=== PATIENT | female | born 1960 | race Two or more races ===

== ENCOUNTER 2024-08-09 10:34 | Inpatient (IN) | payer MEDICAID, OTHER ==
[~2024-08-09] VITALS: Ht 162.6 cm; Wt 71.0 kg
[2024-08-09 11:15] VITALS: PULSE 72; RESP 17; O2SAT 96
--- NOTE | 2024-08-09 11:23 | DVH ---
CT HEAD WITHOUT CONTRAST INDICATION: DIZZINESS EXAM DATE: 08/09/2024 11:03 AM COMPARISON: None RADIATION DOSE: CTDIvol: 53.21 mGy, DLP: 942.26 mGy*cm PROCEDURE: CT scans of the head were obtained from the vertex to the skull base. Sagittal and coronal reconstructions were provided. All CT scans at this medical facility are performed using dose modulation techniques as appropriate t o a performed exam including the following: Automated exposure control was utilized; adjustment of th e MA and/or KV according to patient size; and use of iterative reconstruction technique. FINDINGS: Post surgical changes from left mastoidectomy with partial craniotomy is noted. There is s ulcal and ventricular prominence. The brainshows normal morphology and cope-white matter differentiat ion, without intracranial hemorrhage, extra-axial fluid collection, mass effect or acute large vessel infarct. The ventricles are normal in size. The basal cisterns are patent. The skull and visible fac ial bones are intact. The paranasal sinuses, mastoid air cells and middle ear cavities are well-aerat ed. The soft tissues of the scalp are unremarkable. IMPRESSION: Post surgical changes from left mastoidectomy with partial craniotomy is noted. No acute intracranial abnormality.
[2024-08-09 11:37] LABS: Urine Bacteria None Seen /hpf (None Seen)
--- NOTE | 2024-08-09 11:40 | ED.PDOC ---
History of Present Illness HPI Comments 63-year-old female who comes in with chief complaint of pressure in her head as well as nausea. The patient states that yesterday afternoon she started feeling some head pressure. Then at 10:30 a.m. in the evening the pain worsened. This morning at approximately 9:30 a.m. she started experiencing increased pressure which she rates as a 7/10. She developed some nausea so 911 was called. When the paramedics arrived, the patient was given Zofran 4 mg IV push. Upon arrival, the patient was still complaining of the head pressure but denies any nausea or vomiting. There has been no fever or chills. We used the patient was daughter for translation. Chief Complaint: Dizziness Time Seen by MD: 10:35 Primary Care Provider: DOUGLAS Reviewed Notes: Nurses Notes, Wreath Machine Tender Notes, Medications, Allergies (Allergies listed above) Allergies: Coded Allergies: Codeine (Verified Allergy, Unknown, 08/09/24) Ibuprofen (Verified Allergy, Unknown, 08/09/24) Information Source: Patient, Relative (Child), Emergency Med Personnel Mode of Arrival: EMS Severity: Moderate Timing: Days Duration: Since onset Prehospital treatment: Press Hand, IVF, Other (Zofran 4 mg IV push) Associated signs and symptoms Associated nausea with the headaches Past Medical History PAST MEDICAL HISTORY: High Lipids, HTN Past Medical History (Other): Left leg DVT Surgical History (Other): Right ear procedure, left ankle surgeries Family History Family History: Reviewed,noncontributory to illness Social History Smoker: Non-Smoker Alcohol: Denies ETOH Use Drugs: Denies Drug Use Lives In: Home Constitutional: denies: chills, diaphoresis, fatigue, fever, malaise, sweats, weakness, others EENTM: denies: blurred vision, double vision, ear bleeding, ear discharge, ear drainage, ear pain, ear ringing, eye pain, eye redness, hearing loss, mouth pain, mouth swelling, nasal discharge, nose bleeding, nose congestion, nose pain, photophobia, tearing, throat pain, throat swelling, voice changes, others Respiratory: denies: cough, hemoptysis, orthopnea, SOB at rest, shortness of breath, SOB with excertion, stridor, wheezing, others Cardiovascular: denies: chest pain, dizzy spells, diaphoresis, Dyspnea on exertion, edema, irregular heart beat, left arm pain, lightheadedness, palpitations, PND, syncope, others Gastrointestinal: reports: nausea; denies: abdomen distended, abdominal pain, blood streaked bowels, constipated, diarrhea, dysphagia, difficulty swallowing, hematemesis, melena, poor appetite, poor fluid intake, rectal bleeding, rectal pain, vomiting, others Genitourinary: denies: abnormal vagina bleeding, burning, dyspareunia, dysuria, flank pain, frequency, hematuria, incontinence, pain, , vagina discharge, urgency, others Neurological: reports: headache; denies: dizziness, fainting, left sided numbne ss, left sided weakness, numbness, paresthesia, pre-existing deficit, right sided numbness, right sided weakness, seizure, speech problems, tingling, tremors, weakness, others Musculoskeletal: denies: back pain, gout, joint pain, joint swelling, muscle pain, muscle stiffness, neck pain, others Integumetry: denies: bruises, change in color, change in hair/nails, dryness, laceration, lesions, lumps, rash, wounds, others Allergic/Immunocompromised: denies: Difficulty Healing, Frequent Infections, Hives, Itching, others Hematologic/Lymphatic: denies: anemia, blood clots, easy bleeding, easy bruising, swollen glands, others Endocrine: denies: excessive hunger, excessive sweating, excessive thirst, excessive urination, flushing, intolerance to cold, intolerance to heat, unexplained weight gain, unexplained weight loss, others Psychiatric: denies: anxiety, bipolar disorder, depression, hopeless, panic disorder, schizophrenia, sleepless, suicidal, others Physical Exam General Appearance: Moderate Distress HEENT: Normal ENT Inspection, Pharynx Normal, TMs Normal Neck: Full Range of Motion, Non-Tender, Normal, Normal Inspection Respiratory: Chest Non-Tender, Lungs Clear, No Accessory Muscle Use, No Respiratory Distress, Normal Breath Sounds Cardiovascular: No Edema, No JVD, No Murmur, No Gallop, Normal Peripheral Pulses, Regular Rate/Rhythm Breast Exam: Deferred Gastrointestinal: No Organomegaly, Non Tender, No Pulsatile Mass, Normal Bowel Sounds, Soft Genitalia: Deferred Pelvic: Deferred Rectal: Deferred Extremities: No calf tenderness, Normal capillary refill, Normal inspection, Normal range of motion, Non-tender, No pedal edema Musculoskeletal : Apperance: Normal Neurologic: Alert, chemistry physics teacher II-XII nml as Tested, Facial Droop (Right-sided facial droop from previous surgery), Motor Weakness, Normal Affect, Normal Mood, No Sensory Deficits Cerebellar Function: Normal Reflexes: Normal Skin: Dry, Normal Color, Warm Lymphatic: No Adenopathy Was a procedure done? Was a procedure done?: No EKG EKG : Pulse Rate (adult): 71 [place]: Normal Cardiac Rhythm: NSR Block: None ST: Nonsp Differential Dx Considerations may include: CVA, hypertensive urgency, generalized weakness X-Ray, Labs, Meds, VS Vital Signs Date Time Temp Pulse Resp B/P (MAP) Pulse Ox O2 Delivery O2 Flow Rate FiO2 08/09/24 15:39 74 13 142/77 08/09/24 15:25 74 13 142/77 (98) 93 08/09/24 15:09 73 13 142/77 08/09/24 15:00 74 12 140/74 (96) 95 08/09/24 14:00 82 14 141/79 (99) 94 08/09/24 13:00 72 12 135/72 (93) 94 08/09/24 12:28 68 13 141/78 08/09/24 12:20 68 13 141/78 (99) 97 08/09/24 11:58 72 17 155/76 08/09/24 11:40 71 08/09/24 11:15 98.1 72 17 155/76 (102) 96 98.1 08/09/24 11:15 72 17 96 Room Air* 0 21 08/09/24 10:37 98.5 83 20 178/80 (112) 97 Lab Test 08/09/24 15:15 08/09/24 11:33 08/09/24 11:15 Range/Units Troponin I High Sensitivity < 3 L </=34 ng/L White Blood Count 6.6 4.4-10.8 10^3/uL Red Blood Count 4.23 4.0-5.20 10^6/uL Hemoglobin 13.5 12.2-16.2 g/dL Hematocrit 39.7 36.0-46.0 % Mean Corpuscular Volume 93.8 80.0-100.0 fL Mean Corpuscular Hemoglobin 31.9 28.0-32.0 pg Mean Corpuscular Hemoglobin Concent 34.1 32.0-36.0 g/dL Red Cell Distribution Width 13.2 11.8-14.3 % Platelet Count 194 140-450 10^3/uL Mean Platelet Volume 7.9 6.9-10.8 fL Neutrophils (%) (Auto) 68.9 37.0-80.0 % Lymphocytes (%) (Auto) 24.1 10.0-50.0 % Monocytes (%) (Auto) 6.1 0.0-12.0 % Eosinophils (%) (Auto) 0.5 0.0-7.0 % Basophils (%) (Auto) 0.4 0.0-2.0 % Neutrophils # (Auto) 4.5 1.6-8.6 10 ^3/uL Lymphocytes # (Auto) 1.6 0.4-5.4 10 ^3/uL Monocytes # (Auto) 0.4 0-1.3 10 ^3/uL Eosinophils # (Auto) 0 0-0.8 10 ^3/uL Basophils # (Auto) 0 0-0.2 10 ^3/uL Nucleated Red Blood Cells 0.1 % Prothrombin Time 18.0 H 9.3-11.8 sec Prothrombin Time INR 1.80 H 0.9-1.15 Activated Partial Thromboplast Time 33.6 24.5-34.5 SEC Sodium Level 137 136-145 mmol/L Potassium Level 4.0 3.5-5.1 mmol/L Chloride Level 104 98-107 mmol/L Carbon Dioxide Level 26 20-31 mmol/L Anion Gap 7 5-15 Blood Urea Nitrogen 10 9-23 mg/dL Creatinine 0.75 0.550-1.02 mg/dL Glomerular Filtration Rate Calc 90 >90 mL/min BUN/Creatinine Ratio 13.3 10.0-20.0 Serum Glucose 110 H 74-106 mg/dL Calcium Level 9.8 8.7-10.4 mg/dL Urine Color Light-yellow Yellow Urine Clarity Clear Clear Urine pH 6.0 5.0-9.0 Urine Specific [place] 1.016 1.001-1.035 Urine Protein Negative Negative Urine Ketones Negative Negative Urine Blood Negative Negative /uL Urine Nitrite Negative Negative Urine Bilirubin Negative Negative Urine Urobilinogen Normal Negative mg/dL Urine Leukocyte Esterase Negative Negative /uL Urine RBC 1 0 - 4 /hpf Urine Microscopic WBC < 1 0-5 /HPF Urine Squamous Epithelial Cells Few <5 /hpf Urine Bacteria None seen None Seen /hpf Urine Mucus Few None Seen Urine Glucose Normal Normal mg/dL Current Medications Medications (Trade) Dose Ordered Sig/Haroldo Route Start Time Stop Time Status Last Admin Morphine Sulfate 2 mg ONCE ONCE IV 08/09/24 11:15 08/09/24 11:16 DC 08/09/24 11:58 Ondansetron HCl (Zofran) 4 mg ONCE ONCE IV 08/09/24 12:00 08/09/24 12:01 DC 08/09/24 11:57 Morphine Sulfate 4 mg ONCE ONCE IV 08/09/24 14:30 08/09/24 14:31 DC 08/09/24 15:09 Ondansetron HCl (Zofran) 4 mg ONCE ONCE IV 08/09/24 14:30 08/09/24 14:31 DC 08/09/24 15:08 CT scan of the head shows: IMPRESSION: Post surgical changes from left mastoidectomy with partial craniotomy is noted. No acute intracranial abnormality. CT scan of the abdomen and pelvis shows: IMPRESSION: Post surgical changes from left mastoidectomy with partial craniotomy is noted. No acute intracranial abnormality. The patient's CBC is within normal limits The chemistry panel is within normal limits The urine test is negative The troponin level is negative The patient was given morphine 4 mg IV push for the pain The patient was given Zofran 4 mg IV push for the nausea The patient did have some relief from her headache but is now complaining of abd ominal pain The patient was then given morphine and Zofran for the abdominal pain The patient was still having persistent symptoms The patient was being admitted at this time Images Reviewed?: Images reviewed and evaluated by me Time of 1ST Reevaluation: 11:40 Reevaluation 1ST: Unchanged Patient Education/Counseling: Diagnosis, Treatment, Prognosis Family Education/Counseling: Diagnosis, Treatment, Prognosis Departure 1 Departure Time of Disposition: 16:17 Impression: Primary Impression: Intractable abdominal pain Additional Impressions: Tension headache Generalized weakness Disposition: 09 ADMITTED INPATIENT Admit to: Med Surg Condition: Fair Critical Care Note Critical Care Time?: No Stability Stability form required: Yes Unstable for transfer: Telemetry monitoring (Telemetry monitoring required), ED Physician Assesment (Clinical assesment) Heart Score Heart Score: Heart Score Response (Comments) Value History N/A 0 EKG N/A 0 Age N/A 0 Risk Factors N/A 0 Troponin N/A 0 Total 0 ROSEANNE MITCHELL MD Aug 09, 2024 11:40
[2024-08-09 11:52] LABS: Basophils # (auto) 0 10 ^3/uL (0-0.2); Basophils % (auto) 0.4 % (0.0-2.0); Eosinophils # (auto) 0 10 ^3/uL (0-0.8); Eosinophils % (auto) 0.5 % (0.0-7.0); Hematocrit 39.7 % (36.0-46.0); Hemoglobin 13.5 g/dL (12.2-16.2); Lymphocytes # (auto) 1.6 10 ^3/uL (0.4-5.4); Lymphocytes % (auto) 24.1 % (10.0-50.0); Mean Corpuscular Hemoglobin 31.9 pg (28.0-32.0); Mean Corpuscular Hgb Conc. 34.1 g/dL (32.0-36.0); Mean Corpuscular Volume 93.8 fL (80.0-100.0); Monocytes # (auto) 0.4 10 ^3/uL (0-1.3); Monocytes % (auto) 6.1 % (0.0-12.0); Neutrophils # (auto) 4.5 10 ^3/uL (1.6-8.6); Neutrophils % (auto) 68.9 % (37.0-80.0); Nucleated Red Blood Cells % 0.1 %; Platelet Count (auto) 194 10^3/uL (140-450); Red Blood Cells 4.23 10^6/uL (4.0-5.20); Red Cell Distribution Width 13.2 % (11.8-14.3); White Blood Cell 6.6 10^3/uL (4.4-10.8)
[2024-08-09 11:56] LABS: Urine Blood Negative /uL (Negative); Urine Clarity Clear (Clear); Urine Color Light-Yellow (Yellow); Urine Mucus FEW (None Seen); Urine Protein, UAD Negative (Negative); Urine Specific Gravity 1.016 (1.001-1.035); Urine Squamous Epithelial Cell FEW /hpf (<5); Urine Urobilinogen Normal (Negative); Urine WBC < 1 /HPF (0-5)
[2024-08-09] MEDS: ONDANSETRON HCL 4 MG/2 ML VIAL IV ONE ×2 (11:57→15:08)
[2024-08-09] MEDS: MORPHINE SULFATE INJ 2 MG/ml SYRG IV ONE (11:58)
[2024-08-09 11:59] LABS: Chloride 104 mmol/L (98-107); Sodium 137 mmol/L (136-145)
[2024-08-09 12:01] LABS: Anion Gap 7 (5-15); Calcium 9.8 mg/dL (8.7-10.4); Carbon Dioxide 26 mmol/L (20-31)
[2024-08-09 12:06] LABS: BUN/Creatinine Ratio 13.3 (10.0-20.0); Blood Urea Nitrogen 10 mg/dL (9-23)
[2024-08-09 12:11] LABS: Glucose 110 mg/dL (74-106)
[2024-08-09 12:14] LABS: INR 1.8 (0.9-1.15); Partial Thromboplastin Time 33.6 SEC (24.5-34.5)
--- NOTE | 2024-08-09 14:43 | DVH ---
CT ABDOMEN AND PELVIS WITHOUT CONTRAST CLINICAL HISTORY: pain TECHNIQUE: Multiple contiguous axial images of the abdomen and pelvis without intravenous contrast. The images were reformatted degenerate coronal and sagittal reconstructions. All CT scans at this medical facility are performed using dose modulation techniques as appropriate t o a performed exam including the following:Automated exposure control was utilized; adjustment of the MA and/or KV according to patient size; and use of iterative reconstruction technique. Radiation Dose Information: CT Dose: CTDI volume is 7.02 mGy. Dose-length product is 358.37 mGy*cm Comparison: None FINDINGS: Evaluation of the abdomen and pelvis is limited without intravenous contrast. The liver, gallbladder, pancreas, kidneys, adrenal glands, and spleen appear within normal limits. There is no gross evidence of abdominal lymphadenopathy. There is no free fluid or free air. The stomach grossly appears unremarkable. The small and large bowel loops demonstrate normal caliber . A normal-appearing appendix is seen in the right lower quadrant abdomen. The abdominal aorta and IVC appear within normal limits. The bladder appears unremarkable for the degree of distention. Pelvic organ appears within normal [place] its. There is no gross evidence of a pelvic mass. There is no free fluid collection. Lung bases are clear. There is pericardial effusion. There is no acute osseous abnormality. IMPRESSION: 1. There is no acute process in the abdomen and pelvis. HS:Y
[2024-08-09] MEDS: MORPHINE SULFATE 4 MG/ML SYR/VIAL IV ONE (15:09)
--- NOTE | 2024-08-09 22:44 | DVHHPRES ---
History of Present Illness Resident Creating Document: MINH HUITRON RESIDENT Reason for Visit: Dizziness and headache History of Present Illness This is a 63-year-old female who comes into the ED with chief complain of headaches, nausea and dizziness. 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 History of left middle ear surgery around 15 years ago. Denies using any drugs, alcohol or smoking. History was obtained with the help of her daughter, patient states that since three days ago she has been experiencing episodes of dizziness, which exacerbate with change of positions, bending, standing up. She mentions that whenever she walks she feels that she will fall. She also mentions experiencing headaches, most prominent on left side, waxes and wane, with moderate to severe intensity, the associated with nausea, dizziness, worsens with bright light and improves in a dark room without noise, and taking Tylenol. In the ED, patient has had a head CT which was unremarkable, she will also receive morphine IV, Zofran IV, a CT abdomen pelvis was also unremarkable. She was admitted for further investigation and management. Cardiovascular: HTN, hyperipidemia Pulmonary: Pulmonary embolus Smoke: No ALCOHOL: none Drugs: None Lives: with Family Review of Systems Constitutional: Yes: Malaise; No: Fever, Chills, Sweats, Weakness, Other Eyes: No: Pain, Vision change, Conjunctivae inflammation, Eyelid inflammation, Other, Redness ENT: No: Ear pain, Ear discharge, Nose pain, Nose discharge, Nose congestion, Mouth pain, Mouth swelling, Throat pain, Throat swelling, Other Respiratory: No: Cough, Dry, Shortness of breath, SOB with excertion, Wheezing, Hemoptysis, Pleuritic Pain, Sputum, Wheezing, Other Cardiovascular: No: Chest Pain, Palpitations, Orthopnea, Paroxysmal Noc. Dyspnea, Edema, Lt Headedness, Other Gastrointestinal: Nausea, Abdominal Pain; No: Vomiting, Diarrhea, Constipation, Melena, Hematochezia, Other Genitourinary: Dysuria; No Frequency, No Incontinence, No Hematuria, No Retention, No Other Musculoskeletal: No: other, neck pain, shoulder pain, arm pain, back pain, hand pain, leg pain, foot pain Skin: No: Rash, Lesions, Jaundice, Bruising, Other Neurological: Other (Dizziness); No: Weakness, Numbness, Incoordination, Change in speech, Confusion, Seizures Allergies: Coded Allergies: Codeine (Verified Allergy, Unknown, 08/09/24) Ibuprofen (Verified Allergy, Unknown, 08/09/24) Exam Vital Signs Vital Signs Date Time Temp Pulse Resp B/P (MAP) Pulse Ox O2 Delivery O2 Flow Rate FiO2 08/09/24 19:00 97.9 76 13 114/72 (86) 97 97.9 08/09/24 11:15 Room Air* 0 21 General Appearance: Alert, Oriented X3, Cooperative, No acute distress HEENT: Atraumatic, PERRLA, Mucous membr. moist/pink Respiratory: Clear to auscultation, Normal air movement Cardiovascular: Regular rate, Normal S1, Normal S2 Abdominal: Normal bowel sounds, Soft, No tenderness, No hepatospenomegaly Extremities: No clubbing, No cyanosis, No edema, Normal pulses, No tenderness/swelling Skin: No rashes, No breakdown, No significant lesion Neuro: Normal gait, Normal speech, Strength at 5/5 X4 ext, Normal tone, Sensation intact, Cranial nerves 3-12 NL Psych/Mental Status: Mental status NL, Mood NL Labs/Xrays Labs Test 08/09/24 16:24 08/09/24 11:33 08/09/24 11:15 Range/Units Troponin I High Sensitivity < 3 L </=34 ng/L White Blood Count 6.6 4.4-10.8 10^3/uL Red Blood Count 4.23 4.0-5.20 10^6/uL Hemoglobin 13.5 12.2-16.2 g/dL Hematocrit 39.7 36.0-46.0 % Mean Corpuscular Volume 93.8 80.0-100.0 fL Mean Corpuscular Hemoglobin 31.9 28.0-32.0 pg Mean Corpuscular Hemoglobin Concent 34.1 32.0-36.0 g/dL Red Cell Distribution Width 13.2 11.8-14.3 % Platelet Count 194 140-450 10^3/uL Mean Platelet Volume 7.9 6.9-10.8 fL Neutrophils (%) (Auto) 68.9 37.0-80.0 % Lymphocytes (%) (Auto) 24.1 10.0-50.0 % Monocytes (%) (Auto) 6.1 0.0-12.0 % Eosinophils (%) (Auto) 0.5 0.0-7.0 % Basophils (%) (Auto) 0.4 0.0-2.0 % Neutrophils # (Auto) 4.5 1.6-8.6 10 ^3/uL Lymphocytes # (Auto) 1.6 0.4-5.4 10 ^3/uL Monocytes # (Auto) 0.4 0-1.3 10 ^3/uL Eosinophils # (Auto) 0 0-0.8 10 ^3/uL Basophils # (Auto) 0 0-0.2 10 ^3/uL Nucleated Red Blood Cells 0.1 % Prothrombin Time 18.0 H 9.3-11.8 sec Prothrombin Time INR 1.80 H 0.9-1.15 Activated Partial Thromboplast Time 33.6 24.5-34.5 SEC Sodium Level 137 136-145 mmol/L Potassium Level 4.0 3.5-5.1 mmol/L Chloride Level 104 98-107 mmol/L Carbon Dioxide Level 26 20-31 mmol/L Anion Gap 7 5-15 Blood Urea Nitrogen 10 9-23 mg/dL Creatinine 0.75 0.550-1.02 mg/dL Glomerular Filtration Rate Calc 90 >90 mL/min BUN/Creatinine Ratio 13.3 10.0-20.0 Serum Glucose 110 H 74-106 mg/dL Calcium Level 9.8 8.7-10.4 mg/dL Urine Color Light-yellow Yellow Urine Clarity Clear Clear Urine pH 6.0 5.0-9.0 Urine Specific [place] 1.016 1.001-1.035 Urine Protein Negative Negative Urine Ketones Negative Negative Urine Blood Negative Negative /uL Urine Nitrite Negative Negative Urine Bilirubin Negative Negative Urine Urobilinogen Normal Negative mg/dL Urine Leukocyte Esterase Negative Negative /uL Urine RBC 1 0 - 4 /hpf Urine Microscopic WBC < 1 0-5 /HPF Urine Squamous Epithelial Cells Few <5 /hpf Urine Bacteria None seen None Seen /hpf Urine Mucus Few None Seen Urine Glucose Normal Normal mg/dL Assessment/Plan Assessment/Plan #Headache, possibly due to migraine, tension headaches #Dizziness, possibly related to peripheral vertigo, possibly due to vestibular neuritis, labyrinthitis, rule out TIA/stroke Head CT was unremarkable. HINTS examination pointing towards peripheral vertigo Meclizine 25 mg p.o. q.6 hours p.r.n. Zofran 4 mg IV p.r.n. Tylenol prn Ordered orthostatic vitals Ordered B12, folate, A1c, hepatic panel, TSH, urine culture Ordered carotid ultrasound #Hypertension, uncontrolled Improved, monitor Cardiac diet #Pericardial effusion Ordered Echocardiogram Ordered EKG, shows NSR, no acute ST-T waves Troponins within normal limits #Abdominal pain, possibly related to acute gastritis, peptic ulcer disease Continue Protonix 40 mg IV q.d. Denies any hematemesis, brown coffee emesis, melena Pending hepatic panel CT abdomen was unremarkable #History of DVT and PE in 2021 Continue warfarin per pharmacy #Hyperlipidemia Continue Lipitor 20 mg p.o. daily Goals of care were discussed for over 30 minutes. Full code Case was discussed with Dr. Andre. Plan discussed with: Patient, Daughter My Orders Orders - MINH HUITRON RESIDENT Procedure Category Date Status Time Admit ADMIT 08/09/24 Transmitted 21:46 Notify Md Of Changes NEIL 08/09/24 In Process From Base 21:46 Orthostatic Vital ORDERS 08/09/24 Verified Signs 22:31 Vitamin B12 LAB 08/09/24 Verified 22:31 Folate (Folic Acid) LAB 08/09/24 Verified 22:31 Hepatic Panel LAB 08/09/24 Verified 22:31 Ondansetron Hcl PHA 08/09/24 Verified (Zofran) 22:45 Meclizine Tablet PHA 08/09/24 Verified (Antivert Tablet) 22:45 Complete Blood Count LAB 08/10/24 Verified 04:00 Basic Metabolic Panel LAB 08/10/24 Verified 04:00 Hemoglobin A1c LAB 08/09/24 Verified 22:31 Lipid Panel LAB 08/09/24 Verified 22:31 Thyroid Stimulating LAB 08/09/24 Verified Hormone 22:31 Pantoprazole PHA 08/09/24 Verified (Protonix) 22:45 Pantoprazole PHA 08/10/24 Verified (Protonix) 10:00 Cardiac DIET 08/10/24 Verified Diet-2gna,Lofat,Lochol Breakfast Urine Bacterial MATT 08/09/24 Verified Culture 22:31 Hydrocodone-Acet PHA 08/09/24 Verified 5/325mg Tab ([place] 22:45 Cortisol Am LAB 08/10/24 Verified 08:00 Ketorolac Injection PHA 08/09/24 Verified (Toradol Injection) 22:45 Warfarin Per Rx PHA 08/09/24 Verified Protocol (Coumadin 22:45 Atorvastatin (Lipitor) PHA 08/10/24 Verified 22:00 Chest Xray 1 View XY 08/09/24 Verified 22:31 MINH HUITRON RESIDENT Aug 09, 2024 22:44
[2024-08-09] MEDS ORDERED: KETOROLAC TROMETH 30 MG/ML 1ML VIAL IV PRN (22:45)
[2024-08-09] MEDS ORDERED: ONDANSETRON HCL 4 MG/2 ML VIAL IV PRN (22:45)
[2024-08-09] MEDS ORDERED: HYDROcodone-ACET 5/325MG TAB PO PRN (22:45)
[2024-08-09] MEDS ORDERED: MECLIZINE HCL 25 MG TAB PO PRN (22:45)
[2024-08-09] MEDS: PANTOPRAZOLE 40 MG/10 ML VIAL INJ IV ONE (23:16)
--- NOTE | 2024-08-09 23:19 | ECG ---
[facility] Test Date: 2024-08-09 Test Time: 10:51:16 Pat Name: RAVEN MATTA Department: ER Room: [address] [place] [address] A Gender: F Small Order Cutter: SARAHI : 1960 Requested By: MINH FRAZIER Order Number: [id number] Reading MD: Giovani Lebron Measurements Intervals [place] Rate: 71 P: 67 VA: 378 QRS: 69 QRSD: 126 T: 56 QT: 387 QTc: 421 Interpretive Statements Sinus rhythm Nonspecific intraventricular conduction delay Electronically Signed On 08-10-2024 9:06:45 PST by Giovani Lebron Please click the below link to view image of tracing.
[2024-08-09 23:24] LABS: Albumin 4.6 g/dL (3.2-4.8); Bilirubin, Direct 0.2 mg/dL (<0.3); Bilirubin, Total 0.5 mg/dL (0.2-1.0); Total Protein 7.3 g/dL (5.7-8.2)
[2024-08-09 23:28] LABS: Folate (Folic Acid) 21.53 ng/mL (>5.38)
--- NOTE | 2024-08-10 00:45 | DVH ---
EXAMINATION: AP portable chest radiograph CLINICAL HISTORY: sob COMPARISON: None FINDINGS: Lead wires overlie the thorax. Mild central interstitial prominence. No lobar consolidation identified. No definite pleural effusion or pneumothorax. Mild apparent prominence of the cardiac silhouette may be in part exaggerated by teresa osbornque. Chronic appearing deformity of the right humeral head. IMPRESSION: Mild central interstitial prominence is relatively nonspecific but can be seen with edema, reactive a irway changes as well as atypical / viral infection. Please correlate clinically.
[2024-08-10 03:59] LABS: COVID19 ANTIGEN SOFIA FIA NEGATIVE (NEGATIVE); Rapid Influenza A Negative (Negative); Rapid Influenza B Negative (Negative)
[2024-08-10] MEDS ORDERED: SUMAtriptan SUCCINATE 25 MG TAB PO PRN (06:15)
[2024-08-10 07:25] VITALS: PULSE 78; RESP 14; O2SAT 98
[2024-08-10 08:02] LABS: Basophils # (auto) 0 10 ^3/uL (0-0.2); Basophils % (auto) 0.3 % (0.0-2.0); Eosinophils # (auto) 0 10 ^3/uL (0-0.8); Eosinophils % (auto) 0.6 % (0.0-7.0); Hematocrit 37.8 % (36.0-46.0); Hemoglobin 12.7 g/dL (12.2-16.2); Lymphocytes # (auto) 1.9 10 ^3/uL (0.4-5.4); Mean Corpuscular Hemoglobin 31.7 pg (28.0-32.0); Mean Corpuscular Hgb Conc. 33.7 g/dL (32.0-36.0); Monocytes # (auto) 0.4 10 ^3/uL (0-1.3); Monocytes % (auto) 7.6 % (0.0-12.0); Neutrophils # (auto) 3.1 10 ^3/uL (1.6-8.6); Neutrophils % (auto) 56.5 % (37.0-80.0); Nucleated Red Blood Cells % 0.1 %; Platelet Count (auto) 200 10^3/uL (140-450); Red Blood Cells 4.02 10^6/uL (4.0-5.20); Red Cell Distribution Width 13.8 % (11.8-14.3); White Blood Cell 5.6 10^3/uL (4.4-10.8)
[2024-08-10 08:19] LABS: Anion Gap 8 (5-15); Carbon Dioxide 27 mmol/L (20-31); Chloride 104 mmol/L (98-107); Potassium 3.9 mmol/L (3.5-5.1); Sodium 139 mmol/L (136-145)
[2024-08-10 08:21] LABS: Calcium 9.8 mg/dL (8.7-10.4)
[2024-08-10 08:25] LABS: BUN/Creatinine Ratio 17.6 (10.0-20.0); Blood Urea Nitrogen 13 mg/dL (9-23); Glucose 101 mg/dL (74-106)
[2024-08-10] MEDS: MECLIZINE HCL 25 MG TAB PO ONE (09:24)
--- NOTE | 2024-08-10 10:03 | DVH ---
CAROTID ARTERIAL DOPPLER CLINICAL HISTORY: dizziness TECHNIQUE: Doppler study of bilateral carotid/vertebral arteries were performed. Comparison: None FINDINGS: The bilateral common carotid, external and internal carotid arteries appear patent without hemodynami efrain significant stenosis. There is no significant flow limiting plaque formation identified.The sp ectral wave forms and peak systolic velocities are within normal limits. Antegrade flow is present within the vertebral arteries with appropriate velocities and waveforms. Right ICA/CCA PSV ratio = 0.9. Left ICA/CCA PSV ratio = 1.1 . IMPRESSION: 1. No hemodynamically significant stenosis within the carotid arteries. HS:Y
[2024-08-10] MEDS: PANTOPRAZOLE 40 MG/10 ML VIAL INJ IV SCH (10:35)
[2024-08-10] MEDS: ACETAMINOPHEN 325 MG TAB PO PRN (10:41)
[2024-08-10] MEDS ORDERED: ZOFR4T PO (12:27)
[2024-08-10] MEDS ORDERED: MECL12.586 PO (12:27)
[2024-08-10] MEDS ORDERED: PANT40TA2 PO (12:29)
[2024-08-10 13:40] VITALS: BP 122/65; PULSE 73; RESP 15; TEMP 97.3; O2SAT 96
--- NOTE | 2024-08-10 15:00 | DVHDSRES ---
Discharge Summary Date of Admission Resident Creating Document: DEBORAH MARISCAL RESIDENT Aug 09, 2024 at 21:46 Date of Discharge: Aug 10, 2024 Admitting Diagnosis Headache and dizziness Wounds: No wound was present Labs/Diagnostic Data: Laboratory Results Test 08/10/24 07:27 08/10/24 02:58 08/09/24 22:48 08/09/24 16:24 White Blood Count 5.6 10^3/uL (4.4-10.8) Red Blood Count 4.02 10^6/uL (4.0-5.20) Hemoglobin 12.7 g/dL (12.2-16.2) Hematocrit 37.8 % (36.0-46.0) Mean Corpuscular Volume 94.0 fL (80.0-100.0) Mean Corpuscular Hemoglobin 31.7 pg (28.0-32.0) Mean Corpuscular Hemoglobin Concent 33.7 g/dL (32.0-36.0) Red Cell Distribution Width 13.8 % (11.8-14.3) Platelet Count 200 10^3/uL (140-450) Mean Platelet Volume 8.0 fL (6.9-10.8) Neutrophils (%) (Auto) 56.5 % (37.0-80.0) Lymphocytes (%) (Auto) 35.0 % (10.0-50.0) Monocytes (%) (Auto) 7.6 % (0.0-12.0) Eosinophils (%) (Auto) 0.6 % (0.0-7.0) Basophils (%) (Auto) 0.3 % (0.0-2.0) Neutrophils # (Auto) 3.1 10 ^3/uL (1.6-8.6) Lymphocytes # (Auto) 1.9 10 ^3/uL (0.4-5.4) Monocytes # (Auto) 0.4 10 ^3/uL (0-1.3) Eosinophils # (Auto) 0 10 ^3/uL (0-0.8) Basophils # (Auto) 0 10 ^3/uL (0-0.2) Nucleated Red Blood Cells 0.1 % Sodium Level 139 mmol/L (136-145) Potassium Level 3.9 mmol/L (3.5-5.1) Chloride Level 104 mmol/L (98-107) Carbon Dioxide Level 27 mmol/L (20-31) Anion Gap 8 (5-15) Blood Urea Nitrogen 13 mg/dL (9-23) Creatinine 0.74 mg/dL (0.550-1.02) Glomerular Filtration Rate Calc 91 mL/min (>90) BUN/Creatinine Ratio 17.6 (10.0-20.0) Serum Glucose 101 mg/dL (74-106) Calcium Level 9.8 mg/dL (8.7-10.4) B-Type Natriuretic Peptide 30.14 pg/mL (0-100) Cortisol AM Sample 13.81 ug/dL (5.27-22.45) Influenza Type A Antigen Negative (Negative) Influenza Type B Antigen Negative (Negative) SARS-CoV-2 Antigen (Rapid) Negative (NEGATIVE) Hemoglobin A1c 5.8 % A1C (<5.7) Total Bilirubin 0.5 mg/dL (0.2-1.0) Direct Bilirubin 0.2 mg/dL (<0.3) Aspartate Amino Transferase (AST) 14 U/L (13-40) Alanine Aminotransferase (ALT) 16 U/L (7-40) Alkaline Phosphatase 93 U/L (46-116) Total Protein 7.3 g/dL (5.7-8.2) Albumin 4.6 g/dL (3.2-4.8) Triglycerides Level 70 mg/dL (< 150) Cholesterol Level 160 mg/dL (< 200) LDL Cholesterol 83 mg/dL (< 100) HDL Cholesterol 64 mg/dL (40-59) Vitamin B12 Level 394 pg/mL (211-911) Folic Acid 21.53 ng/mL (>5.38) Thyroid Stimulating Hormone (TSH) 1.08 uIU/mL (0.55-4.78) Troponin I High Sensitivity < 3 ng/L (</=34) Test 08/09/24 11:33 08/09/24 11:15 Prothrombin Time 18.0 sec (9.3-11.8) Prothrombin Time INR 1.80 (0.9-1.15) Activated Partial Thromboplast Time 33.6 SEC (24.5-34.5) Urine Color Light-yellow (Yellow) Urine Clarity Clear (Clear) Urine pH 6.0 (5.0-9.0) Urine Specific [place] 1.016 (1.001-1.035) Urine Protein Negative (Negative) Urine Ketones Negative (Negative) Urine Blood Negative /uL (Negative) Urine Nitrite Negative (Negative) Urine Bilirubin Negative (Negative) Urine Urobilinogen Normal mg/dL (Negative) Urine Leukocyte Esterase Negative /uL (Negative) Urine RBC 1 /hpf (0 - 4) Urine Microscopic WBC < 1 /HPF (0-5) Urine Squamous Epithelial Cells Few /hpf (<5) Urine Bacteria None seen /hpf (None Seen) Urine Mucus Few (None Seen) Urine Glucose Normal mg/dL (Normal) Other Laboratory Tests 08/10/24 07:27 Brief Hx & Hospital Course: This is a 63-year-old female who comes into the ED with chief complain of headaches, nausea and dizziness. 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 History of left middle ear surgery around 15 years ago. Denies using any drugs, alcohol or smoking. History was obtained with the help of her daughter, patient states that since three days ago she has been experiencing episodes of dizziness, which exacerbate with change of positions, bending, standing up. She mentions that whenever she walks she feels that she will fall. She also mentions experiencing headaches, most prominent on left side, waxes and wane, with moderate to severe intensity, the associated with nausea, dizziness, worsens with bright light and improves in a dark room without noise, and taking Tylenol. Hospital course: CT head without contrast revealed postsurgical changes from left mastectomy with partial craniotomy and no acute intracranial abnormality, chest xray demonstrated Mild central interstitial prominence is relatively nonspecific but can be seen with edema, reactive airway changes as well as atypical / viral infection. Carotid Doppler demonstrated no hemodynamically significant stenosis in right and left carotid arteries. orthostatic vital was negative, Jenelle-Hallpike maneuver was also negative. Discharge plan was discussed with the patient and all questions were answered. Patient is being discharged to home. Discharge diagnosis: #Headache, possibly due to migraine, tension headaches #Dizziness, possibly related to peripheral vertigo, possibly due to vestibular neuritis, labyrinthitis, ruled out TIA/stroke #Pericardial effusion, ruled out # Possible PUD #History of DVT and PE in 2021 #Hyperlipidemia Discharge Plan: Disposition : Home Medications : Meclizine 12.5 mg p.o. b.i.d. p.r.n. for 5 days, Zofran 4 mg t.i.d. p.r.n. for 5 days and pantoprazole 40 mg daily for 30 days Follow up : PCP in 1 week Consults/Reason for consult No consultation was done Operations or Procedures CT HEAD WITHOUT CONTRAST INDICATION: DIZZINESS EXAM DATE: 08/09/2024 11:03 AM COMPARISON: None RADIATION DOSE: CTDIvol: 53.21 mGy, DLP: 942.26 mGy*cm PROCEDURE: CT scans of the head were obtained from the vertex to the skull base. Sagittal and coronal reconstructions were provided. All CT scans at this medical facility are performed using dose modulation techniques as appropriate to a performed exam including the following: Automated exposure control was utilized; adjustment of the MA and/or KV according to patient size; and use of iterative reconstruction technique. FINDINGS: Post surgical changes from left mastoidectomy with partial craniotomy is noted. There is sulcal and ventricular prominence. The brainshows normal morphology and cope-white matter differentiation, without intracranial hemorrhage, extra-axial fluid collection, mass effect or acute large vessel infarct. The ventricles are normal in size. The basal cisterns are patent. The skull and visible facial bones are intact. The paranasal sinuses, mastoid air cells and middle ear cavities are well-aerated. The soft tissues of the scalp are unremarkable. IMPRESSION: Post surgical changes from left mastoidectomy with partial craniotomy is noted. No acute intracranial abnormality. EXAMINATION: AP portable chest radiograph CLINICAL HISTORY: sob COMPARISON: None FINDINGS: Lead wires overlie the thorax. Mild central interstitial prominence. No lobar consolidation identified. No definite pleural effusion or pneumothorax. Mild apparent prominence of the cardiac silhouette may be in part exaggerated by technique. Chronic appearing deformity of the right humeral head. IMPRESSION: Mild central interstitial prominence is relatively nonspecific but can be seen with edema, reactive airway changes as well as atypical / viral infection. Please correlate clinically CAROTID ARTERIAL DOPPLER CLINICAL HISTORY: dizziness TECHNIQUE: Doppler study of bilateral carotid/vertebral arteries were performed. Comparison: None FINDINGS: The bilateral common carotid, external and internal carotid arteries appear patent without hemodynamically significant stenosis. There is no significant flow limiting plaque formation identified.The spectral wave forms and peak systolic velocities are within normal limits. Antegrade flow is present within the vertebral arteries with appropriate velocities and waveforms. Right ICA/CCA PSV ratio = 0.9. Left ICA/CCA PSV ratio = 1.1 . IMPRESSION: 1. No hemodynamically significant stenosis within the carotid arteries. Condition at Discharge: Stable Final Diagnosis/Problems List #Headache, possibly due to migraine, tension headaches #Dizziness, possibly due to vestibular neuritis, labyrinthitis, ruled out TIA/stroke #Pericardial effusion, ruled out # Possible PUD #History of DVT and PE in 2021 #Hyperlipidemia Discharge Disposition: Home Discharge Instruct/Medications Diet: Cardiac 2g Na,low cholest Activity: No Restrictions, As Tolerated Follow Up/Referral: Follow up with PCP in 1 week Medications: As per EMR Discharge Statement: "Patient was advised to return to the ER or call 911 if any headaches, dizziness, shortness of breath, chest pain, abdominal pain, bleeding, fevers, or worsening of medical condition. Patient was counseled about treatment plan, medications, possible side effects, patientverbalized understanding. All questions were answered to the best of my ability. This discharge took greater then 30 minutes in planning, reviewing documentation, counseling the patient, and discussing with other team members." ASSESSMENT ASSESSMENT Assessment #Headache, possibly due to migraine, tension headaches #Dizziness, possibly due to vestibular neuritis, labyrinthitis, ruled out TIA/stroke #Pericardial effusion, ruled out # Possible PUD #History of DVT and PE in 2021 #Hyperlipidemia DEBORAH MARISCAL RESIDENT Aug 10, 2024 15:00
[2024-08-10] MEDS ORDERED: WARFARIN SODIUM 5 MG TAB PO ONE (17:00)
[2024-08-10] MEDS ORDERED: ATORVASTATIN 20 MG TAB PO SCH (22:00)
== END 2024-08-10 13:43 | disposition home or self-care (01) | DRG 54 ==
LOC: ER 10:34 → EDBD 10:34 → OVERFLOW 21:46
PROVIDERS: ATTEND Emergency Medicine
DX: G43.909 Migraine, unspecified, not intractable, without status migrainosus (principal); E78.5 Hyperlipidemia, unspecified; G44.209 Tension-type headache, unspecified, not intractable; G58.8 Other specified mononeuropathies; Z20.822 Contact with and (suspected) exposure to COVID-19; I10 Essential (primary) hypertension; Z86.718 Personal history of other venous thrombosis and embolism; Z86.711 Personal history of pulmonary embolism
CPT/HCPCS: 36415; 70450; 71045; 74176; 80048; 80061; 80076; 81001; 82533; 82607; 82746; 83036; 83880; 84443; 84484; 85025; 85610; 85730; 87086; 87088; 87186; 87426; 87804; 93005; 93886; 96374; 96375; 96376; G0378; J2405; J2470

== ENCOUNTER 2024-12-24 05:12 | Emergency (ER) | payer MEDICAID ==
[~2024-12-24] VITALS: Ht 172.7 cm; Wt 72.0 kg
[~2024-12-24 05:12] MED LIST: MECL12.586 PO; PANT40TA2 PO; ZOFR4T PO
[2024-12-24] MEDS: MORPHINE SULFATE 4 MG/ML SYR/VIAL IV ONE (05:30)
[2024-12-24] MEDS: SODIUM CHLORIDE 0.9% 1,000 ML IVB ONE (05:30)
[2024-12-24] MEDS: ONDANSETRON HCL 4 MG/2 ML VIAL IV ONE (05:30)
--- NOTE | 2024-12-24 05:35 | ED.PDOC ---
History of Present Illness HPI Comments 64 y/o F is BIBA with daughter for c/o nonradiating, periumbilical abdominal pain, nausea, vomiting, and dizziness. Per EMS report, patient's daughter reports on patient developing symptoms, suddenly, and hour ago prior to arrival. Patient has a history of DVT ane PE on Warfarin, HLD, HTN, and unspecified heart surgery for 'fluid removal.' Vitals was noted to have been stable and within normal limits, with a blood glucose of 130. Patient denies having any bloody or bilious vomitus, diarrhea, urinary symptoms, fever, vision or speech changes, headache, or further associated symptoms. Chief Complaint: Abdominal Pain Time Seen by MD: 05:20 Primary Care Provider: DOUGLAS Reviewed Notes: Nurses Notes, Automatic Dry Starch Operator Notes, Medications, Allergies Allergies: Coded Allergies: Codeine (Verified Allergy, Unknown, 08/09/24) Ibuprofen (Verified Allergy, Unknown, 08/09/24) Home Meds Active Scripts Pantoprazole Sodium Sesquihydr (Protonix) 40 Mg Tab, 40 MG PO DAILY for 30 Days, #30 TAB Prov:DEBORAH MARISCAL RESIDENT 08/10/24 Ondansetron Odt 4MG Tab (ZOFRAN PO) 4 Mg Tb, 4 MG PO TID for 5 Days, #15 TAB ODT TAB-DISSOLVE IN MOUTH, THEN SWALLOW Prov:DEBORAH MARISCAL RESIDENT 08/10/24 Meclizine Hcl (Meclizine Hcl) 12.5 Mg Tab, 1 TAB PO TID for 5 Days, #15 TAB 3 Refills Prov:DEBORAH MARISCAL RESIDENT 08/10/24 Information Source: Patient, Relative (Child), Emergency Med Personnel Mode of Arrival: EMS Severity: Moderate Timing: Hours Duration: Since onset Prehospital treatment: 12 Lead EKG, Accucheck, Director Financial Systems Past Medical History PAST MEDICAL HISTORY: High Lipids, HTN Past Medical History (Other): DVT and PE, on Warfarin Surgical History (Other): middle ear surgery Family History Family History: Reviewed,noncontributory to illness Social History Smoker: Non-Smoker Alcohol: Denies ETOH Use Drugs: Denies Drug Use Lives In: Home All Other Systems: Reviewed and Negative (As per HPI) Physical Exam General Appearance: Mild Distress, Normal HEENT: Normal ENT Inspection, Pharynx Normal, TMs Normal Neck: Full Range of Motion, Non-Tender, Normal, Normal Inspection Respiratory: Chest Non-Tender, Lungs Clear, No Accessory Muscle Use, No Respiratory Distress, Normal Breath Sounds Cardiovascular: No Edema, No JVD, No Murmur, No Gallop, Normal Peripheral Pulses, Regular Rate/Rhythm Breast Exam: Deferred Gastrointestinal: No Organomegaly, No Pulsatile Mass, Normal Bowel Sounds, Soft, Tenderness (periumbilical tenderness ) Genitalia: Deferred Pelvic: Deferred Rectal: Deferred Extremities: No calf tenderness, Normal capillary refill, Normal inspection, Normal range of motion, Non-tender, No pedal edema Musculoskeletal : Apperance: Normal Neurologic: Alert, pharmaceutical physician II-XII nml as Tested, No Motor Deficits, Normal Affect, Normal Mood, No Sensory Deficits Cerebellar Function: Normal Reflexes: Normal Skin: Dry, Normal Color, Warm Lymphatic: No Adenopathy Was a procedure done? Was a procedure done?: No Differential Dx Considerations may include: acute vertigo, gastritis, gastroenteritis, PUD, GERD, spoiled food, viral syndrome, electrolyte imbalance, dehydration, colitis, sbo, ischemic bowel, ileus appendicitis, AAA X-Ray, Labs, Meds, VS Vital Signs Date Time Temp Pulse Resp B/P (MAP) Pulse Ox O2 Delivery O2 Flow Rate FiO2 12/24/24 07:20 69 17 96 Room Air* 0 21 12/24/24 07:20 98.3 69 17 162/78 (106) 96 98.3 12/24/24 06:30 68 15 135/80 12/24/24 06:18 98.7 68 15 135/80 (98) 99 98.7 12/24/24 06:13 68 15 99 Room Air* 0 21 12/24/24 05:30 68 15 135/80 12/24/24 05:27 65 12/24/24 05:12 98.6 69 18 145/82 (103) 99 98.6 Lab Test 12/24/24 06:12 12/24/24 05:51 12/24/24 05:36 Range/Units Troponin I High Sensitivity < 3 L < 3 L </=34 ng/L Urine Color Colorless Yellow Urine Clarity Clear Clear Urine pH 7.5 5.0-9.0 Urine Specific [place] 1.005 1.001-1.035 Urine Protein Negative Negative Urine Ketones Negative Negative Urine Blood Negative Negative /uL Urine Nitrite Negative Negative Urine Bilirubin Negative Negative Urine Urobilinogen Normal Negative mg/dL Urine Leukocyte Esterase Negative Negative /uL Urine RBC 1 0 - 4 /hpf Urine Microscopic WBC 1 0-5 /HPF Urine Squamous Epithelial Cells Few <5 /hpf Urine Bacteria None seen None Seen /hpf Urine Glucose Normal Normal mg/dL White Blood Count 6.0 4.4-10.8 10^3/uL Red Blood Count 4.34 4.0-5.20 10^6/uL Hemoglobin 13.9 12.2-16.2 g/dL Hematocrit 39.5 36.0-46.0 % Mean Corpuscular Volume 91.2 80.0-100.0 fL Mean Corpuscular Hemoglobin 32.1 H 28.0-32.0 pg Mean Corpuscular Hemoglobin Concent 35.2 32.0-36.0 g/dL Red Cell Distribution Width 13.6 11.8-14.3 % Platelet Count 213 140-450 10^3/uL Mean Platelet Volume 7.5 6.9-10.8 fL Neutrophils (%) (Auto) 66.2 37.0-80.0 % Lymphocytes (%) (Auto) 25.8 10.0-50.0 % Monocytes (%) (Auto) 7.3 0.0-12.0 % Eosinophils (%) (Auto) 0.4 0.0-7.0 % Basophils (%) (Auto) 0.3 0.0-2.0 % Neutrophils # (Auto) 4.0 1.6-8.6 10 ^3/uL Lymphocytes # (Auto) 1.5 0.4-5.4 10 ^3/uL Monocytes # (Auto) 0.4 0-1.3 10 ^3/uL Eosinophils # (Auto) 0 0-0.8 10 ^3/uL Basophils # (Auto) 0 0-0.2 10 ^3/uL Nucleated Red Blood Cells 0.0 % Sodium Level 141 136-145 mmol/L Potassium Level 3.7 3.5-5.1 mmol/L Chloride Level 105 98-107 mmol/L Carbon Dioxide Level 23 20-31 mmol/L Anion Gap 13 5-15 Blood Urea Nitrogen 9 9-23 mg/dL Creatinine 0.76 0.550-1.02 mg/dL Glomerular Filtration Rate Calc 88 >90 mL/min BUN/Creatinine Ratio 11.8 10.0-20.0 Serum Glucose 116 H 74-106 mg/dL Calcium Level 9.4 8.7-10.4 mg/dL Total Bilirubin 0.7 0.2-1.0 mg/dL Aspartate Amino Transferase (AST) 20 <34 U/L Alanine Aminotransferase (ALT) 28 7-40 U/L Alkaline Phosphatase 87 46-116 U/L Total Protein 7.3 5.7-8.2 g/dL Albumin 4.6 3.2-4.8 g/dL Lipase 40 12-53 U/L Current Medications Medications (Trade) Dose Ordered Sig/Haroldo Route Start Time Stop Time Status Last Admin Ondansetron HCl (Zofran) 4 mg ONCE ONCE IV 12/24/24 05:30 12/24/24 05:31 DC 12/24/24 05:30 Sodium Chloride 1,000 ml @ 1,000 mls/hr Q1H ONCE IVB 12/24/24 05:30 12/24/24 06:29 DC 12/24/24 05:30 Morphine Sulfate 4 mg ONCE ONCE IV 12/24/24 05:30 12/24/24 05:31 DC 12/24/24 05:30 Time of 1ST Reevaluation: 05:50 Reevaluation 1ST: Unchanged Time of 2ND Reevaluation: 09:16 Reevaluation 2ND: Improved Patient Education/Counseling: Diagnosis, Treatment, Prognosis, Need For Follow Up Family Education/Counseling: Diagnosis, Treatment, Prognosis, Need For Follow Up Comments pt is sleeping comfortably. workup is complete. all results reviewed and are unremarkable. i reexamined and spoke to the pt and her daughter. exam is unremarkable. pt wants to go home. i will prescribe bentyl for her. she is stable for discharge Departure 1 Departure Time of Disposition: 09:17 Impression: Primary Impression: Abdominal pain Qualified Codes: R10.9 - Unspecified abdominal pain Disposition: 01 HOME / SELF CARE / HOMELESS Condition: Good e-Prescriptions Dicyclomine Hcl (BENTYL CAPSULE) 10 Mg Cp 1 CAP PO TID, #90 CAP 11 Refills Prov: MARYBETH RENTERIA MD 12/24/24 Discharged With: Self, Relative Critical Care Note Critical Care Time?: Yes (55 min-critical care time only) Critical care comment: Due to concerns for patients condition deteriorating, the care required my highest level of attention and readiness to intervene. I assessed the patient, reviewed the medical records, ordered the appropriate tests and treatments, then reassessed for results and responsiveness. I communicated with medical personnel and consultants and formulated a plan of care. Total critical care time excludes any procedures Stability Stability form required: No Heart Score Heart Score: Heart Score Response (Comments) Value History N/A 0 EKG N/A 0 Age N/A 0 Risk Factors N/A 0 Troponin N/A 0 Total 0 I personally scribed for HARSH MACK MD ([email or web address]) on 12/24/24 at 05:35. Electronically submitted by Ander Lyon [email or web address]). HARSH MACK MD Dec 24, 2024 05:35 MARYBETH RENTERIA MD Dec 24, 2024 09:19
[2024-12-24 05:58] LABS: Basophils # (auto) 0 10 ^3/uL (0-0.2); Basophils % (auto) 0.3 % (0.0-2.0); Eosinophils # (auto) 0 10 ^3/uL (0-0.8); Eosinophils % (auto) 0.4 % (0.0-7.0); Hematocrit 39.5 % (36.0-46.0); Hemoglobin 13.9 g/dL (12.2-16.2); Lymphocytes # (auto) 1.5 10 ^3/uL (0.4-5.4); Lymphocytes % (auto) 25.8 % (10.0-50.0); Mean Corpuscular Hemoglobin 32.1 pg (28.0-32.0); Mean Corpuscular Hgb Conc. 35.2 g/dL (32.0-36.0); Mean Corpuscular Volume 91.2 fL (80.0-100.0); Monocytes # (auto) 0.4 10 ^3/uL (0-1.3); Monocytes % (auto) 7.3 % (0.0-12.0); Neutrophils % (auto) 66.2 % (37.0-80.0); Platelet Count (auto) 213 10^3/uL (140-450); Red Blood Cells 4.34 10^6/uL (4.0-5.20); Red Cell Distribution Width 13.6 % (11.8-14.3)
[2024-12-24 06:09] LABS: Urine Bacteria None Seen /hpf (None Seen)
[2024-12-24 06:12] LABS: Alanine Aminotransferase 28 U/L (7-40); Albumin 4.6 g/dL (3.2-4.8); Alkaline Phosphatase 87 U/L (46-116); Anion Gap 13 (5-15); Aspartate Aminotransferase 20 U/L (<34); BUN/Creatinine Ratio 11.8 (10.0-20.0); Bilirubin, Total 0.7 mg/dL (0.2-1.0); Blood Urea Nitrogen 9 mg/dL (9-23); Calcium 9.4 mg/dL (8.7-10.4); Carbon Dioxide 23 mmol/L (20-31); Chloride 105 mmol/L (98-107); Lipase 40 U/L (12-53); Potassium 3.7 mmol/L (3.5-5.1); Sodium 141 mmol/L (136-145); Total Protein 7.3 g/dL (5.7-8.2)
[2024-12-24 06:13] VITALS: PULSE 68; RESP 15; O2SAT 99
[2024-12-24 06:13] LABS: Glucose 116 mg/dL (74-106)
[2024-12-24 06:14] LABS: Urine Blood Negative /uL (Negative); Urine Clarity Clear (Clear); Urine Color Colorless (Yellow); Urine Protein, UAD Negative (Negative); Urine Specific Gravity 1.005 (1.001-1.035); Urine Squamous Epithelial Cell FEW /hpf (<5); Urine Urobilinogen Normal (Negative); Urine WBC 1 /HPF (0-5); Urine pH 7.5 (5.0-9.0)
--- NOTE | 2024-12-24 06:40 | ECG ---
[facility] Test Date: 2024-12-24 Test Time: 05:27:00 Pat Name: RAVEN MATTA Department: ED Room: Gender: F Emergency Management System Director: : [id number] Requested By: HARSH MACK Order Number: [id number] Reading MD: Giovani Lebron Measurements Intervals [place] Rate: 65 P: 67 MD: 149 QRS: 73 QRSD: 92 T: 57 QT: 398 QTc: 414 Interpretive Statements Sinus rhythm Electronically Signed On 12-24-2024 17:32:37 PDT by Giovani Lebron Please click the below link to view image of tracing.
[2024-12-24 07:20] VITALS: BP 162/78; PULSE 69; RESP 17; TEMP 98.3; O2SAT 96
[2024-12-24] MEDS: IOHEXOL 300 MG/ML 100ML BOTTLE IJ ONE (08:11)
--- NOTE | 2024-12-24 08:55 | DVH ---
CT CT AB PEL WITH IV CON ONLY INDICATION: abd pain, vomiting EXAM DATE: 12/24/2024 08:09 AM COMPARISON: None RADIATION DOSE: CTDIvol: 6.84 mGy, DLP: 371.55 mGy*cm PROCEDURE: Helical CT images were obtained of the abdomen and pelvis with IV contrast Sagittal and co carlita reconstructions are provided. ORAL CONTRAST: None. ADDITIONAL IMAGES / REFORMATS: None All CT s cans at this medical facility are performed using dose modulation techniques as appropriate to a perf ormed exam including the following: Automated exposure control was utilized; adjustment of the MA and /or KV according to patient size; and use of iterative reconstruction technique. FINDINGS: LUNG BASE: Small pericardial effusion. LIVER: Normal. GALLBLADDER AND BILIARY TREE: No calcified gallstones. Normal caliber wall. No intra- or extrahepatic biliary ductal dilation. PANCREAS: Normal. SPLEEN: Normal. BOWEL: Normal. Normal appendix. ADRENALS: Normal. KIDNEYS AND URETER: Normal. BLADDER: Normal. REPRODUCTIVE ORGANS: Normal. LYMPH NODES:No lymphadenopathy. PERITONEUM: No ascites or free air. No other fluid collection. VESSELS: Scattered atherosclerotic calcifications are noted. RETROPERITONEUM: Normal. ABDOMINAL WALL: Normal. BONES: Scattered osseous degenerative changes are noted. IMPRESSION: No acute intraabdominal abnormality.
[2024-12-24] MEDS ORDERED: DICY10CA PO (09:18)
== END 2024-12-24 10:05 | disposition home or self-care (01) ==
LOC: ER 05:12 → EDBD 05:12 → ER 10:05
DX: R10.33 Periumbilical pain (principal); I10 Essential (primary) hypertension; E78.5 Hyperlipidemia, unspecified; Z79.899 Other long term (current) drug therapy; Z86.718 Personal history of other venous thrombosis and embolism; Z98.890 Other specified postprocedural states; Z88.5 Allergy status to narcotic agent; Z88.6 Allergy status to analgesic agent
CPT/HCPCS: 36415; 74177; 80053; 81001; 83690; 84484; 85025; 93005; 96361; 96374; 96375; 99285; J2270; J2405; J7030; Q9967